=== PATIENT | male | born 1990 | race Caucasian/White ===

== ENCOUNTER 2018-07-30 21:05 | Emergency (ER) | payer BC ==
--- NOTE | 2018-07-30 21:21 | ED.PDOC ---
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 Timing/Duration: 24 hours Severity: moderate Improving Factors: nothing Worsening Factors: nothing Associated Symptoms: denies symptoms Allergies/Adverse Reactions: Allergies Codeine Allergy (Verified 07/30/18 21:19) Rash Home Medications: Ambulatory Orders Amoxicillin [Amoxil] 1,000 mg PO BID 7 Days #30 cap 07/30/18 Review of Systems - Review of Systems Constitutional: States: no symptoms reported Musculoskeletal: States: no symptoms reported Skin: States: see HPI All other Systems: Reviewed and Negative, No Change from Baseline Past Medical History (General) - Patient Medical History Hx Seizures: No Hx Stroke: No Hx Dementia: No Hx Asthma: No Hx of COPD: No Hx Cardiac Disorders: No Hx Congestive Heart Failure: No Hx Pacemaker: No Hx Hypertension: No Hx Thyroid Disease: No Hx Diabetes: No Hx Gastroesophageal Reflux: No Hx Renal Disease: No Hx Cancer: No Hx of HIV: No Hx Hepatitis C: No Hx MRSA: No Surgical History: other - left shoulder arthroscopy - Vaccination History Hx Tetanus, Diphtheria Vaccination: Yes Hx Influenza Vaccination: No - Social History Hx Tobacco Use: Yes - quit 3 days ago Hx Alcohol Use: Yes Family Medical History - Family History Mother Family History: No Known Physical Exam - Physical Exam General Appearance: Alert, Comfortable, No apparent distress Eye Exam: bilateral normal Ears, Nose, Throat: hearing grossly normal, normal ENT inspection Neck: non-tender, normal inspection Respiratory: lungs clear, normal breath sounds Cardiovascular/Chest: normal peripheral pulses, regular rate, rhythm, no murmur Peripheral Pulses: radial,right: 2+, radial,left: 2+ Gastrointestinal/Abdominal: non tender, soft Extremity: no pedal edema, no calf tenderness Neurologic: alert Skin Exam: normal color, warm/dry, other - localized swelling medial aspect left knee slightly tender Progress - Progress Progress: 07/30/18 21:31 Vital Signs - 8 hr 07/30/18 21:10 Temperature 96.7 F L Pulse Rate [ 74 monitor] Respiratory 18 Rate Blood Pressure 124/76 [Left Arm] O2 Sat by Pulse 97 Oximetry - EKG/XRAY/CT XRAY: knee - left no FB noted Departure - Departure Clinical Impression: Pain and swelling of left knee Time of Disposition: 22:01 Disposition: Discharge to Home or Self Care Condition: Fair Departure Forms: ED Discharge - Pt. Copy, Patient Portal Self Enrollment Instructions: DI for Wound Infection Prescriptions: Amoxicillin [Amoxil] 1,000 mg PO BID 7 Days #30 cap Home Medications: Ambulatory Orders Amoxicillin [Amoxil] 1,000 mg PO BID 7 Days #30 cap 07/30/18 Additional Instructions: May take Aleve(over the counter) 1-2 tablets am/pm for pain;follow up with [id number] for recheck 04 August 2018 if needed
[2018-07-30 21:37] VITALS: BP 124/76; TEMP 96.7; O2SAT 97
--- NOTE | 2018-07-30 21:56 | RAD ---
EXAM DESCRIPTION: Knee,Left 2 or More Views CLINICAL HISTORY: possible foreign body COMPARISON: None FINDINGS: 2 view(s) submitted. There is a small to moderate knee joint effusion. No fracture or dislocation is identified. Bone marrow attenuation is unremarkable. No radiopaque foreign body is identified. IMPRESSION: No acute fracture or dislocation. Electronically signed by: Ry Bender 07/30/2018 9:55 PM IT SENIOR ANALYST
[2018-07-30] MEDS ORDERED: AMOXICILLIN 500 MG CAP PO ONE (22:02)
[2018-07-30] MEDS ORDERED: IBUPROFEN 200 MG TAB PO ONE (22:03)
== END 2018-07-30 22:15 | disposition home or self-care (01) ==
LOC: ER 21:05
DX: M25.462 Effusion, left knee (principal); M25.562 Pain in left knee; Z88.5 Allergy status to narcotic agent